=== PATIENT | male | born 1965 | race Caucasian/White ===

== ENCOUNTER 2021-02-28 11:27 | Emergency (ER) | payer SELFPAY ==
[~2021-02-28] VITALS: Ht 170.2 cm; Wt 109.8 kg
[2021-02-28 11:48] VITALS: BP 152/96
[2021-02-28] MEDS ORDERED: CONCOR PO (12:18)
== END 2021-02-28 12:31 | disposition home or self-care (01) ==
LOC: ER 11:30
DX: I10 Essential (primary) hypertension (principal); Z76.0 Encounter for issue of repeat prescription; E78.5 Hyperlipidemia, unspecified